=== PATIENT | male | born 1970 | race Caucasian/White ===

== ENCOUNTER 2024-07-21 09:39 | Emergency (ER) | payer OTHER ==
[~2024-07-21] VITALS: Ht 165.1 cm; Wt 90.9 kg
[2024-07-21 09:47] VITALS: BP 154/99; PULSE 74; RESP 18; TEMP 97.4; O2SAT 99
[2024-07-21] MEDS ORDERED: BACI28.410 TP (10:37)
== END 2024-07-21 11:16 | disposition home or self-care (01) ==
LOC: EMS 09:43
DX: S37.33XA Laceration of urethra, initial encounter (principal); X58.XXXA Exposure to other specified factors, initial encounter; Y93.89 Activity, other specified; Y92.89 Other specified places as the place of occurrence of the external cause; Y99.8 Other external cause status
CPT/HCPCS: 87491; 87591; 99283

== ENCOUNTER 2025-02-14 14:05 | Emergency (ER) | payer OTHER ==
[~2025-02-14] VITALS: Ht 162.6 cm; Wt 97.7 kg
[2025-02-14 14:09] VITALS: BP 146/81; PULSE 84; RESP 18; TEMP 98.5; O2SAT 98
[2025-02-14 14:23] LABS: APPEARANCE,URINE TURBID (CLEAR); GLUCOSE, URINE (UA) NEGATIVE (NEGATIVE); LEUKOCYTE ESTERASE ,URINE LARGE (NEGATIVE); NITRATE,URINE NEGATIVE (NEGATIVE); OCCULT BLOOD,URINE LARGE (NEGATIVE); SPECIFIC GRAVITIY, URINE 1.022 (1.003-1.030)
[2025-02-14 14:25] LABS: SULFOSALICYLIC ACID,URINE 2+ (Negative)
[2025-02-14] MEDS ORDERED: CEPHALEXIN MONOHYDRATE 500 MG CAPSULE PO ONE (14:45)
[2025-02-14] MEDS: AZITHROMYCIN 500 MG TABLET PO ONE (15:03)
[2025-02-14] MEDS: PHENAZOPYRIDINE HCL 100 MG TABLET PO ONE (15:04)
[2025-02-14] MEDS: LIDOCAINE/PF 1% 2 ML VIAL IM ONE (15:07)
[2025-02-14] MEDS: CefTRIAXone SODIUM 1 GM/VIAL IM ONE (15:07)
[2025-02-14 15:21] LABS: CALCIUM, TOTAL 8.5 mg/dL (8.8-10.5); CREATININE 1.21 mg/dL (0.60-1.30); GLOMERULAR FILTR. RATE CALC > 60 mL/min (>60); GLUCOSE,RANDOM 114 mg/dL (70-110); SODIUM SERUM 142 mmol/L (136-145); UREA NITROGEN, BLOOD 10 mg/dL (7-18)
[2025-02-14 15:22] LABS: PLATELET COUNT (AUTO) 219 K/uL (150-450); RED BLOOD CELL COUNT(AUTO) 4.75 MIL/uL (4.50-5.90); RED CELL DISTRIBUTION WIDTH 13.7 % (11.5-14.5); WHITE BLOOD COUNT (AUTO) 12.9 K/uL (4.5-11.0)
[2025-02-14] MEDS ORDERED: CEPH-558 PO (15:53)
[2025-02-14] MEDS ORDERED: PHEN-674 PO (15:53)
== END 2025-02-14 16:04 | disposition home or self-care (01) ==
LOC: EMS 14:07
DX: N39.0 Urinary tract infection, site not specified (principal); R30.0 Dysuria; Z79.2 Long term (current) use of antibiotics
CPT/HCPCS: 99284; 80048; 81001; 85025; 87086; 36415; 96372; J0456; J0696; J3490; 81002; 87077